=== PATIENT | male | born 1955 | race African-American/Black ===

== ENCOUNTER 2016-07-06 21:20 | Emergency (ER) | payer OTHER ==
[~2016-07-06] VITALS: Ht 180.3 cm; Wt 100.0 kg
[2016-07-07] MEDS ORDERED: IBUPROFEN 600MG TABLET PO ONE (00:30)
[2016-07-07 01:45] VITALS: BP 150/87
== END 2016-07-07 01:46 | disposition home or self-care (01) ==
LOC: ER 21:20
DX: M54.5 Low back pain (principal); I10 Essential (primary) hypertension; Z98.890 Other specified postprocedural states; V89.2XXA Person injured in unspecified motor-vehicle accident, traffic, initial encounter; Y93.89 Activity, other specified; Y92.89 Other specified places as the place of occurrence of the external cause; Y99.8 Other external cause status
CPT/HCPCS: 72100; 99284